=== PATIENT | female | born 1930 | race Two or more races ===

== ENCOUNTER 2021-03-19 13:25 | Emergency (ER) | payer OTHER ==
[~2021-03-19] VITALS: Ht 137.2 cm; Wt 50.8 kg
[2021-03-19] MEDS ORDERED: TOPROL XL25 M1 PO (13:54)
[2021-03-19] MEDS ORDERED: HUMALOG MI100 UNIT/2 SQ (13:54)
[2021-03-19] MEDS ORDERED: LASIX20 MG PO (13:54)
[2021-03-19] MEDS ORDERED: LANOXIN62.5 MCG (14:22)
[2021-03-19] MEDS ORDERED: ALDACTONE25 MG PO (14:22)
== END 2021-03-19 18:42 | disposition home or self-care (01) ==
LOC: ER 13:25
DX: E11.9 Type 2 diabetes mellitus without complications (principal)

== ENCOUNTER 2021-11-14 11:39 | Outpatient (CLI) | payer OTHER ==
[~2021-11-14 11:39] MED LIST: ALDACTONE25 MG PO; HUMALOG MI100 UNIT/2 SQ; LANOXIN62.5 MCG; LASIX20 MG PO; TOPROL XL25 M1 PO
== END 2021-11-14 11:53 | disposition home or self-care (01) ==
LOC: LAB 11:39
DX: Z85.89 Personal history of malignant neoplasm of other organs and systems (principal); C50.911 Malignant neoplasm of unspecified site of right female breast; N28.9 Disorder of kidney and ureter, unspecified